=== PATIENT | female | born 1975 | race Caucasian/White ===

== ENCOUNTER 2023-01-15 22:28 | Emergency (ER) | payer MEDICAID, OTHER ==
[~2023-01-15] VITALS: Ht 165.1 cm; Wt 61.4 kg
[2023-01-15 22:38] VITALS: BP 176/107; PULSE 80; RESP 15; TEMP 98.3
== END 2023-01-16 04:12 | disposition home or self-care (01) ==
LOC: EMS 22:31
DX: S00.83XA Contusion of other part of head, initial encounter (principal); W18.2XXA Fall in (into) shower or empty bathtub, initial encounter; Y93.89 Activity, other specified; Y92.89 Other specified places as the place of occurrence of the external cause; Y99.8 Other external cause status
CPT/HCPCS: 70486; 99285; Z7502